=== PATIENT | female | born 1990 | race African-American/Black ===

== ENCOUNTER 2018-07-21 20:37 | Emergency (ER) | payer BC ==
[~2018-07-21] VITALS: Ht 165.1 cm; Wt 88.9 kg
[2018-07-21 20:45] VITALS: Ht 165.1 cm; Wt 88.9 kg
[2018-07-21] MEDS ORDERED: TORADOL10 MG PO (20:47)
[2018-07-21] MEDS ORDERED: MECLIZINE HCL25 MG PO (20:47)
[2018-07-21] MEDS ORDERED: MOBIC7.5 MG PO (20:47)
[2018-07-21] MEDS ORDERED: ORAL BIRTH CONTROL (20:48)
[2018-07-21 21:26] LABS: BASOPHILS 0.2 % (0-2); EOSINOPHILS 0.5 % (0-7); HEMATOCRIT 39.6 % (36.0-48.0); HEMOGLOBIN 13.1 g/dL (12-16); IMMATURE GRANULOCYTES 0.2 % (0-5); LYMPHOCYTES 45.4 % (15-50); MCH 30.2 pg (26.0-34.0); MCHC 33.1 g/dL (31.0-37.0); MCV 91.2 fL (80.0-100.0); MEAN PLATELET VOLUME 8.7 fL (7.4-10.4); MONOCYTES 6.1 % (2-11); NEUTROPHILS 47.6 % (40-80); PLATELET COUNT 311 10x3/uL (130-400); RBC 4.34 10x6/uL (4.00-5.40); RDW 12.8 % (11.5-14.5); WBC 11.8 10x3/uL (4.8-10.8)
[2018-07-21 21:30] LABS: HCG URINE NEGATIVE (NEGATIVE)
[2018-07-21 21:38] LABS: ALBUMIN 4.3 g/dL (3.4-5.0); ALKALINE PHOSPHATASE 107 U/L (46-116); ALT (SGPT) 78 U/L (10-68); BILIRUBIN - TOTAL 0.25 mg/dL (0.2-1.3); CALC OSMOLALITY 282 mosm/kg (275-300); CALCIUM 9.4 mg/dL (8.5-10.1); CARBON DIOXIDE 27.7 mmol/L (21.0-32.0); CHLORIDE - SERUM 104 mmol/L (98-107); CREATININE - SERUM 0.9 mg/dL (0.6-1.3); GLUCOSE 94 mg/dL (74-106); POTASSIUM - SERUM 3.6 mmol/L (3.5-5.1); PROTEIN - SERUM 8.3 g/dL (6.4-8.2); SODIUM 142 mmol/L (136-145); UREA NITROGEN 13 mg/dL (7-18); eGFR NON AFRICAN AMERICAN 78 mL/min (90-120)
[2018-07-21 21:45] LABS: APPEARANCE CLEAR (CLEAR); BILIRUBIN NEGATIVE (NEGATIVE); COLOR STRAW (YELLOW); GLUCOSE NEGATIVE (NEGATIVE); KETONE NEGATIVE (NEGATIVE); NITRITE NEGATIVE (NEGATIVE); PROTEIN NEGATIVE (NEGATIVE); SPECIFIC GRAVITY 1.025 (1.005-1.020); UROBILINOGEN NORMAL (NORMAL)
[2018-07-21 21:46] LABS: EPITHELIAL CELLS 0-5 /hpf (0-5); RED CELLS - URINE 0-5 /hpf (0-5)
[2018-07-21 21:47] LABS: AMORPHOUS SEDIMENT <1+ /lpf (NONE SEEN); BACTERIA FEW /hpf (NONE SEEN); MUCUS <1+ /lpf (NONE SEEN)
[2018-07-21] MEDS ORDERED: BENTYL 20 MG TA20 MG PO (21:58)
[2018-07-21 22:12] VITALS: BP 123/85
== END 2018-07-21 22:13 | disposition home or self-care (01) ==
LOC: D.ER 20:37
PROVIDERS: Emergency Medicine
DX: R10.30 Lower abdominal pain, unspecified (principal)

== ENCOUNTER → 2018-08-24 08:57 | Outpatient (CLI) | payer BC ==
[~2018-08-24 08:57] MED LIST: BENTYL 20 MG TA20 MG PO; MECLIZINE HCL25 MG PO; MOBIC7.5 MG PO; ORAL BIRTH CONTROL; TORADOL10 MG PO
[2018-08-24 10:56] LABS: BILIRUBIN - DIRECT 0.08 mg/dL (0.00-0.30); BILIRUBIN - INDIRECT 0.18 mg/dL (0.00-1.00); BILIRUBIN - TOTAL 0.26 mg/dL (0.2-1.3)
[2018-08-25 11:10] LABS: HEPATITIS C ANTIBODY <0.1 (0.0-0.9)
== END | disposition home or self-care (01) ==
LOC: D.US 08:57
PROVIDERS: ATTEND Internal Medicine Gastroenterology
DX: R13.10 Dysphagia, unspecified (principal)